=== PATIENT | female | born 1980 | race Caucasian/White ===

== ENCOUNTER 2017-10-19 03:18 | Emergency (ER) | payer BC, OTHER ==
[~2017-10-19] VITALS: Ht 167.6 cm; Wt 83.9 kg
[2017-10-19 03:21] VITALS: BP 132/75
--- NOTE | 2017-10-19 03:21 | NUR ---
TO BED # 9 AMBULATORY , REPORT GIVEN TO IGLESIA RN
--- NOTE | 2017-10-19 03:25 | NUR ---
PATIENT IS A 37 Y/O FEMALE WHO PRESENTS TO THE ED C/O RLQ PAIN. PT STATES THAT IT HAS BEEN GOING ON X2 DAYS. PT REPORTS ACHING 5/10 ACHING RLQ PAIN THAT DOES NOT RADIATE. PT DENIES CP, SOB, DENIES N/V/D. PT AWAKE AND ALERT, AMBULATORY, RR EVEN/UNLABORED. PT REPOSITIONED FOR COMFORT, BED IN LOWEST POSITION. ER MD DR. HOANG NOTIFIED. WILL CONTINUE TO MONITOR.
--- NOTE | 2017-10-19 05:12 | NUR ---
PATIENT TAKEN TO XRAY WITH TECH VIA WHEELCHAIR.
[2017-10-19 05:36] VITALS: BP 129/79
--- NOTE | 2017-10-19 05:36 | NUR ---
Patient discharged with v/s stable. Written and verbal after care instructions given and explained. Patient alert, oriented and verbalized understanding of instructions. Ambulatory with steady gait. All questions addressed prior to discharge. ID band removed. Patient advised to follow up with PMD. Rx of MIRALAX PWDER AND MINERAL OIL given. Patient educated on indication of medication including possible reaction and side effects. Opportunity to ask questions provided and answered.
== END 2017-10-19 05:36 | disposition home or self-care (01) ==
LOC: MED 03:18
DX: R10.31 Right lower quadrant pain (principal); R03.0 Elevated blood-pressure reading, without diagnosis of hypertension
CPT/HCPCS: 74022; 81002; 81025; 99284